=== PATIENT | male | born 1955 | race Caucasian/White ===

== ENCOUNTER 2019-05-21 14:33 | Inpatient (IN) | payer MEDICAID ==
[~2019-05-21] VITALS: Ht 167.6 cm; Wt 60.8 kg
[2019-05-21 14:48] VITALS: BP 101/68
--- NOTE | 2019-05-21 14:58 | NUR ---
PT ARRIVED TO ED WITH DAUGHTER FOR C/O RIGHT ABD PAIN, APPETTIE CHANGE, AND ALOC X 2 WEEKS. PT ABD IS DISTENDED, ASCITIC, ADN TENDERNESS ON RIGHT LOWER QUAD. BS ACTIVE IN ALL QUADS. DENIES ANY N,V,D,FVER, OR CONSTIPATION. VSS. LUNG SOUNDS CLEAR ON RIGHT SIDE AND DIMINSHED AND CRACKLES ON LEFT SIDE. RATES PAIN 10/10. FOLLOWS COMMANDS. Sclera SHOWS MILD YELLOW DISCOLORATION. SKIN SHOWS MILD JAUNDICE. SKIN IS INTACT. SKIN SHOWS BURSING ON UPPER EXTREM. RIGHT LEG SHOWS +3 PITTING EDEMA AND +2 PITTING EDEMA AT THE LEFT ANKLE. NKA. PMH: ASCITIES, LIVER Cirrhosis.
--- NOTE | 2019-05-21 14:58 | NUR ---
PT TAKEN TO ER BED 05
[2019-05-21 15:32] LABS: BASOPHILS # (AUTO) 0.1 K/uL (0.00-0.22); BASOPHILS % (AUTO) 0.7 % (0.0-2.0); EOSINOPHILS # (AUTO) 0.2 K/uL (0-0.4); EOSINOPHILS % (AUTO) 2.6 % (0.0-4.0); HEMOGLOBIN 9.4 g/dL (12.0-18.0); LYMPHOCYTES # (AUTO) 1.5 K/uL (2.0-11.5); LYMPHOCYTES % (AUTO) 17.7 % (20.5-51.1); MEAN CORPUSCULAR HEMOGLOBIN 38 pg (27-31); MEAN CORPUSCULAR HGB CONC 35 g/dL (33-37); MEAN CORPUSCULAR VOLUME 107.8 fL (80-94); MONOCYTES # (AUTO) 1.7 K/uL (0.8-1.0); NEUTROPHILS # (AUTO) 5.2 K/uL (1.8-7.7); PLATELET COUNT (AUTO) 157 K/uL (140-450); RED BLOOD CELL COUNT(AUTO) 2.51 MIL/uL (4.20-6.10); RED CELL DISTRIBUTION WIDTH 14.4 % (11.6-13.7); WHITE BLOOD COUNT (AUTO) 8.7 K/uL (4.8-10.8)
[2019-05-21 15:57] LABS: ANION GAP 15.2 (8-16); CARBON DIOXIDE 25.3 mmol/L (21-32); CREATININE 2.1 mg/dL (0.7-1.3); POTASSIUM 4.5 mmol/L (3.5-5.1); TOTAL BILIRUBIN 3.2 mg/dL (0.0-1.0)
--- NOTE | 2019-05-21 16:13 | NUR ---
DAUGHTER AT BEDSIDE.
[2019-05-21] MEDS ORDERED: MORPHINE SULFATE 4 MG/ML SYR IVP ONE (18:00)
[2019-05-21] MEDS ORDERED: HYDROcodone/APAP 7.5/325 MG 1 TAB PO PRN (18:10)
[2019-05-21] MEDS ORDERED: ACETAMINOPHEN 325 MG TAB PO PRN (18:10)
[2019-05-21] MEDS ORDERED: MORPHINE SULFATE 2 MG/ML SYR IVP PRN (18:10)
--- NOTE | 2019-05-21 18:25 | NUR ---
PT TRANSFER TO VIA WHEELCHAIR.
--- NOTE | 2019-05-21 18:25 | NUR ---
Cathryn rocha in ED - 05/21/19 at 1839 by [facility] PT TRANSFER TO CT VIA WHEELCHAIR.
--- NOTE | 2019-05-21 18:38 | NUR ---
PT RETURNED BACK FROM XR VIA WHEELCHAIR.
--- NOTE | 2019-05-21 19:00 | NUR ---
Patient will be admitted to care of DR. RODRIGUEZ. Admited to TELE. Will go to room 126B. Belongings list completed. Report to LANCE LAKHANI.
[2019-05-21] MEDS ORDERED: ALUMINUM HYD/MAG/SIMETHICONE 30 ML UDC PO PRN (19:10)
[2019-05-21 19:12] LABS: PROTHROMBIN TIME 16.7 secs (10.8-13.4)
[2019-05-21] MEDS ORDERED: FUROSEMIDE 20 MG/2 ML VIAL IVP SCH (19:20)
[2019-05-21] MEDS ORDERED: SPIRONOLACTONE 50 MG TAB PO SCH (19:20)
[2019-05-21] MEDS ORDERED: LACTULOSE 20 GM/30 ML UDC PO SCH (19:20)
[2019-05-21 19:27] LABS: FREE T4 (FREE THYROXINE) 0.65 ng/dL (0.76-1.46); MAGNESIUM 1.9 mg/dL (1.8-2.4); THYROID STIMULATING HORMONE 51.92 uIU/mL (0.34-3.74)
--- NOTE | 2019-05-21 19:30 | NUR ---
RECEIVED BEDSIDE REPORT FROM SALES PROGRAM MANAGER. PT IS SLEEPING. RESPONDS TO NAME. DAUGHTER YON AT BEDSIDE. RESPIRATIONS ARE EQUAL AND UNLABORED ON ROOM ARE. LUNG SOUNDS ARE CLEAR. C/C ABD PAIN AND DISTENTION X2 WEEKS. PITTING EDEMA ON ODALIS LEGS R>L. SKIN IS INTACT. PER DAUGHTER PT DOES NOT USE OXYGEN AT HOME AND ABLE TO AMBULATE. PT AMBULATED FROM GURNEY TO BED GAIT UNSTEADY. AAO X1 PERSON. IV ON LAC 20G. US ABDOMEN PENDING. MRSA OBTAINED. VS: 102/69 HR 98 97% RA RR 16. CALL LIGHT IS WITHIN REACH. POC DISCUSSED WITH PT AND FAMILY. WILL CONTINUE TO MONITOR.
[2019-05-21 20:00] VITALS: BP 102/69
--- NOTE | 2019-05-21 20:00 | NUR ---
US BEING PERFORM AT BEDSIDE. WILL CONTINUE TO MONITOR.
[2019-05-21] MEDS: NACL 0.9% 1,000 ML IV SCH (21:00)
--- NOTE | 2019-05-21 21:14 | NUR ---
VSS. SHILPI MEDICATIONS GIVEN PER ORDERS. PT TOLERATED WELL. BED ALARM ON AND LOWEST POSITION. CALL LIGHT IS WITHIN REACH.
--- NOTE | 2019-05-21 22:47 | NUR ---
PT IS SLEEPING COMFORTABLY IN BED. RESPIRATIONS ARE EQUAL AND UNLABORED. SAFETY MEASURES ARE IN PLACE.
[2019-05-22] VITALS: BP 111/74
--- NOTE | 2019-05-22 01:17 | NUR ---
VITAL SIGNS ARE WITHIN NORMAL LIMITS. CALL LIGHT IS WITHIN REACH. WILL CONTINUE TO MONITOR.
[2019-05-22 04:00] VITALS: BP 119/84
--- NOTE | 2019-05-22 04:00 | NUR ---
VITAL SIGNS ARE WITHIN NORMAL LIMITS. ALL SAFETY MEASURES ARE IN PLACE. CALL LIGHT IS WITHIN REACH.
[2019-05-22] MEDS: ONDANSETRON 4 MG/2 ML VIAL IM/IVP PRN (05:53)
[2019-05-22] MEDS: LEVOTHYROXINE 0.05 MG TAB PO SCH (06:23)
--- NOTE | 2019-05-22 06:37 | NUR ---
NO URINE OUTPUT. BLADDER SCAN >[address] CHILDS ORDER FOR STRAIGHT CATH. WILL F/U
--- NOTE | 2019-05-22 07:31 | NUR ---
GAVE BEDSIDE REPORT TO DAY RN. PT ENDORSED IN STABLE CONDITION.
--- NOTE | 2019-05-22 07:34 | NUR ---
RECEIVED REPORT FROM NIGHT NURSE. PATIENT IS LYING IN BED ASLEEP, ABLE TO WAKE. IV INTACT AND PATENT TO LEFT AC. IVF NS INFUSING AT 30ML/HR. NO S/S OF DISTRESS NOTED. BED IN LOW POSITION, SAFETY MEASURES IN PLACE. CALL LIGHT WITHIN REACH.
[2019-05-22 08:00] VITALS: BP_SYST 111; BP_SYST 92; BP_DIAS 66; BP_DIAS 79
--- NOTE | 2019-05-22 08:45 | NUR ---
STRAIGHT CATH PERFORMED, UNABLE TO COLLECT URINE. WILL ATTEMPT AGAIN. DR. BAILEY NOTIFIED.
[2019-05-22] MEDS ORDERED: MULTIVITAMIN 1 TAB PO SCH (09:00)
[2019-05-22] MEDS ORDERED: FUROSEMIDE 20 MG/2 ML VIAL IVP SCH (09:00)
[2019-05-22] MEDS ORDERED: SPIRONOLACTONE 50 MG TAB PO SCH (09:00)
[2019-05-22] MEDS ORDERED: FOLIC ACID 1 MG TAB PO SCH (09:00)
[2019-05-22] MEDS ORDERED: THIAMINE 100 MG TAB PO SCH (09:00)
[2019-05-22 10:54] LABS: HEMATOCRIT 29.7 % (36-52); MEAN CORPUSCULAR HEMOGLOBIN 36 pg (27-31); MEAN CORPUSCULAR HGB CONC 34 g/dL (33-37); MEAN CORPUSCULAR VOLUME 108.3 fL (80-94); PLATELET COUNT (AUTO) 163 K/uL (140-450); RED BLOOD CELL COUNT(AUTO) 2.75 MIL/uL (4.20-6.10); RED CELL DISTRIBUTION WIDTH 14.6 % (11.6-13.7)
--- NOTE | 2019-05-22 11:00 | NUR ---
SECOND ATTEMPT STRAIGHT CATH PERFORMED, NO URINE OUTPUT. WILL NOTIFY DR. BAILEY.
[2019-05-22 11:12] LABS: CREATININE 3.1 mg/dL (0.7-1.3)
[2019-05-22 11:25] LABS: POTASSIUM 4.7 mmol/L (3.5-5.1)
[2019-05-22 11:32] LABS: CARBON DIOXIDE 21.9 mmol/L (21-32)
[2019-05-22 11:33] LABS: ANION GAP 20.8 (8-16)
--- NOTE | 2019-05-22 11:35 | NUR ---
RECEIVED CRITICAL VALUE: LACTIC ACID 6.6 PER MARILU (LAB). PAGED DR. BAILEY.
[2019-05-22 11:38] LABS: BASOPHILS % (MANUAL) 0 % (0-2); EOSINOPHILS % (MANUAL) 0 % (0-4); LYMPHOCYTES % (MANUAL) 4 % (20-46); MONOCYTES % (MANUAL) 10 % (5-12)
--- NOTE | 2019-05-22 11:50 | NUR ---
DR. MCELROY NOTIFIED OF PATIENT'S LACTIC ACID 6.6 AND UNSUCCESSFUL URINARY STRAIGHT CATHETER. WILL ORDER AND SEE PATIENT.
[2019-05-22 12:00] VITALS: BP 90/59
--- NOTE | 2019-05-22 12:32 | NUR ---
PT REPORTS PAIN 8/10 TO ABDOMINAL AREA. MEDICATED ORDERED. DAUGHTER AND FAMILY AT BEDSIDE.
[2019-05-22 13:35] LABS: CHOL/HDL RATIO 7.4 (1-4.5)
--- NOTE | 2019-05-22 14:40 | NUR ---
NOTIFIED DR. BAILEY, IN REGARDS TO UNSUCCESSFUL INSERTION OF QIU CATHETER. RESISTANCE MET DURING INSERTION. DR. BAILEY TO REFER TO UROLOGY CONSULT.
--- NOTE | 2019-05-22 15:09 | NUR ---
QIU CATHETER RE INSERTION ATTEMPTED, WITH DR. BAILEY AT BEDSIDE. UNABLE TO INSERT CATHETER AT THIS TIME. WILL REFER TO UROLOGIST.
[2019-05-22] MEDS: TAMSULOSIN 0.4 MG CAP PO SCH (15:32)
[2019-05-22 16:00] VITALS: BP 92/54
[2019-05-22] MEDS ORDERED: MORPHINE SULFATE 2 MG/ML SYR IVP SCH (16:20)
[2019-05-22] MEDS ORDERED: LORazepam 2 MG/ML VIAL IVP SCH (16:20)
--- NOTE | 2019-05-22 16:20 | NUR ---
ULTRASOUND GUIDED PARACENTESIS PERFORMED BY DR. BAILEY. CONSENT AND TIME OUT FORM DONE. MORPHINE AND ATIVAN GIVEN ORDERED NOW. WILL MONITOR PATIENT.
--- NOTE | 2019-05-22 17:00 | NUR ---
STATUS POST PARACENTESIS. OUTPUT 1050 ML OF FLUID. PATIENT IS KEPT COMFORTABLE DURING PROCEDURE. WILL CONTINUE TO MONITOR PATIENT.
--- NOTE | 2019-05-22 18:27 | NUR ---
VS 94/52, RESPIRATION 20, TEMP 98.0, O2 SAT 96% RA. FAMILY AT BEDSIDE.
[2019-05-22] MEDS ORDERED: LACTULOSE 20 GM/30 ML UDC PO SCH (18:30)
[2019-05-22] MEDS ORDERED: ALBUMIN HUMAN 25% 100 ML IV SCH (19:00)
[2019-05-22] MEDS: NACL 0.9% 1,000 ML IV SCH (19:05)
--- NOTE | 2019-05-22 19:05 | NUR ---
REPORT GIVEN TO SUPERINTENDENT SYSTEM OPERATION NURSE. PATIENT IS IN STABLE CONDITION.
--- NOTE | 2019-05-22 19:06 | NUR ---
RECEIVED BEDSIDE REPORT. PT IS LAYING IN BED WITH EYES CLOSED RESPIRATIONS ARE EQUAL AND UNLABORED ON RA. DAY RN IS GOING TO START ALBUMIN PER ORDERS IV ON LAC 20G. ALSO DAY RN TRIED TO GIVE LACTULOSE BUT PT UNRESPONSIVE OPEN EYES BUT NOT TALKING HIGH RISK OF ASPIRATION. PT HAD A PARACENTESIS TODAY 1050L OUTPUT AT 1620 ORDER TO SEND FLUID TO LAB CURRENTLY IN ROOM. ORDER FOR QIU CATH D/T NO URINE OUTPUT IN OVER 24H. NURSES ATTEMPT X4 WILL F/U WITH DOCTOR. FAMILY IS AT BEDSIDE. POC DISCUSSED WITH PT AND FAMILY. SAFETY MEASURES ARE IN PLACE. WILL ROUND FREQUENTLY.
--- NOTE | 2019-05-22 19:40 | NUR ---
VSS: 99/54 HR 101 98%RA RR 18 97.6. NOTED ODALIS LOWER EXTREMITY PITTING EDEMA R>L NO CHANGE NOTED FROM YESTERDAY. BLADDER SCAN REVEALED 600CC BUT NOT ACCURATE D/T ASCITES. MADE AWARE WILL ORDER CONSULT WITH DR MILES FOR QIU INSERTION. ALSO MADE AWARE OF LACTIC ACID TRENDING UP 7.2 H. TO SEE PATIENT.
[2019-05-22 19:46] LABS: BASOPHILS % (AUTO) 0.3 % (0.0-2.0); HEMATOCRIT 28.2 % (36-52); HEMOGLOBIN 9.5 g/dL (12.0-18.0); LYMPHOCYTES # (AUTO) 0.8 K/uL (2.0-11.5); LYMPHOCYTES % (AUTO) 5.7 % (20.5-51.1); MEAN CORPUSCULAR HEMOGLOBIN 37 pg (27-31); MEAN CORPUSCULAR HGB CONC 34 g/dL (33-37); MEAN CORPUSCULAR VOLUME 109.5 fL (80-94); MONOCYTES # (AUTO) 0.9 K/uL (0.8-1.0); MONOCYTES % (AUTO) 6.5 % (1.7-9.3); NEUTROPHILS # (AUTO) 11.7 K/uL (1.8-7.7); NEUTROPHILS % (AUTO) 87.5 % (42.2-75.2); PLATELET COUNT (AUTO) 153 K/uL (140-450); RED BLOOD CELL COUNT(AUTO) 2.57 MIL/uL (4.20-6.10); RED CELL DISTRIBUTION WIDTH 14.5 % (11.6-13.7); WHITE BLOOD COUNT (AUTO) 13.3 K/uL (4.8-10.8)
[2019-05-22 20:00] VITALS: BP 99/54
[2019-05-22 20:04] LABS: CREATININE 3.5 mg/dL (0.7-1.3)
[2019-05-22 20:10] LABS: ANION GAP 20.6 (8-16); CARBON DIOXIDE 20.8 mmol/L (21-32)
[2019-05-22 20:11] LABS: POTASSIUM 5.4 mmol/L (3.5-5.1)
[2019-05-22] MEDS ORDERED: PIPERACILLIN/TAZOBACTAM 3.375 GM in DEXTROSE 5% 50 ML IV SCH (21:00)
[2019-05-22] MEDS ORDERED: CALCIUM CHLORIDE 10% 1,000 MG in NACL 0.9% 100 ML IV SCH (21:00)
[2019-05-22] MEDS ORDERED: DEXTROSE 50% 50 ML SYR IVP SCH (21:00)
[2019-05-22] MEDS ORDERED: INSULIN REGULAR, HUMAN 100 UNIT/ML VIAL IVP SCH (21:00)
[2019-05-22] MEDS ORDERED: PIPERACILLIN/TAZOBACTAM 2.25 GM VIAL IV ONE (21:05)
[2019-05-22] MEDS: PIPERACILLIN/TAZOBACTAM 2.25 GM in DEXTROSE 5% 50 ML IV SCH (21:15)
--- NOTE | 2019-05-22 21:15 | NUR ---
PATIENT POTASSIUM HIGH ORDERS TO ADMINISTER INSULIN. ADMINISTERED DEXTROSE PER ORDERS IVP WILL F/U WITH ACCU CHECK BEFORE ADMINISTERING INSULIN.
[2019-05-22] MEDS ORDERED: CALCIUM CHLORIDE 10% 100 MG/ML SYR IVP ONE (21:24)
--- NOTE | 2019-05-22 21:45 | NUR ---
DR MILES ATTEMPT TO INSERT QIU CATH THERE WAS RESISTANCE. HE THEN FOLLOWED TO USE UROLOGIST GLORIA AND INSERT CATHETER THERE WAS 200 CC URINE OUTPUT DARK ORANGE/ BLOOD TINGE. PT TOLERATED WELL. SAFETY MEASURES ARE IN PLACE. WILL CONTINUE TO MONITOR. Addendum: 05/23/19 at 0107 by Cherry Rich RN THERE WAS 120 CC URINE OUTPUT
[2019-05-22 22:00] LABS: APPEARANCE,SPUN,BODY FLUID CLEAR (CLEAR); APPEARANCE,UNSPUN,BODY FLUID CLEAR (CLEAR); COLOR,BODY FLUID LT YELLOW (LT YELLOW); RBC, BODY FLUID 396 /cu. mm.; SPECIMENTYPE,BODY FLUID PARACENTESIS; TOTAL VOLUME,BODY FLUID 1050 mL; WBC, BODY FLUID 54 /cu. mm.
[2019-05-22 22:11] LABS: GLUCOSE,BODY FLUID 71 mg/dL
--- NOTE | 2019-05-22 22:14 | NUR ---
ADMINISTERED CA CHLORIDE NOW INFUSING PER ORDERS. ADMINISTERED INSULIN. BLOOD SUGAR IS 165. SAFETY MEASURES ARE IN PLACE. WILL CONTINUE TO MONITOR. Addendum: 05/22/19 at 2244 by Cherry Rich RN BG 163
[2019-05-22 22:21] LABS: POLYNUCLEAR, BODY FLUID 33 %
[2019-05-23] VITALS (13 sets, daily range): BP systolic 81–118; BP diastolic 47–94
--- NOTE | 2019-05-23 | NUR ---
VSS : 118/94, HR 105 RR 20 97% RA. RECHECKED BG 138. PT REMAINS ALOC. OPENS EYES TO VOICE BUT NONVERBAL. WILL CONTINUE TO MONITOR.
[2019-05-23 01:10] LABS: BARBITURATE, URINE NEG. ng/ml (NEG <=200); BENZODIAZEPINE, URINE NEG. ng/mL (NEG <=200); CANNABINOID, URINE NEG. ng/mL (NEG <=50); COCAINE, URINE NEG. ng/mL (NEG <=300); OPIATE, URINE NEG. ng/mL (NEG <=2000); PHENCYCLIDINE SCREEN,URINE NEG. ng/mL (NEG <=25)
--- NOTE | 2019-05-23 02:00 | NUR ---
PATIENT IS SLEEPING COMFORTABLY IN BED. CHEST RISE AND FALL. CALL LIGHT IS WITHIN REACH.
[2019-05-23 03:57] LABS: APPEARANCE,URINE CLEAR (CLEAR); BILIRUBIN,URINE 1+ (NEGATIVE); BLOOD, URINE 2+ (NEGATIVE); LEUKOCYTE ESTERASE ,URINE NEGATIVE (NEGATIVE); NITRITE, URINE NEGATIVE (NEGATIVE); UGLUCOSE NEGATIVE (NEGATIVE)
[2019-05-23] MEDS ORDERED: PIPERACILLIN/TAZOBACTAM 2.25 GM VIAL IV ONE (04:01)
[2019-05-23] MEDS: PIPERACILLIN/TAZOBACTAM 2.25 GM in DEXTROSE 5% 50 ML IV SCH ×2 (04:06→13:20)
[2019-05-23 04:07] LABS: COLOR,URINE AMBER (YELLOW)
[2019-05-23 04:10] LABS: WBC,URINE 0-5 /HPF (0-5)
[2019-05-23 04:11] LABS: HYALINE CASTS, URINE 0-10 /LPF (None Seen)
--- NOTE | 2019-05-23 04:23 | NUR ---
VITAL SIGNS ARE STABLE; 101/56 HR 102 92% RA RR 20 TEMP 97 .6. WALKED INTO ROOM PT HAD BLANK STARE WAS STARING AT CEILING. CALLED OUT PT'S NAME NO REACTION. SHOOK PT SHOULDER AND OPEN EYES WIDER. NO VERBAL RESPONSE OR LOOKED AT ME. CONTINUES TO STARE AT CEILING. MADE AWARE. PER DOCTOR WILL TREND LABS IN THE AM. WILL CONTINUE TO MONITOR CLOSELY.
[2019-05-23] MEDS: LEVOTHYROXINE 0.05 MG TAB PO SCH (06:30)
[2019-05-23] MEDS: MIDODRINE 5 MG TAB PO SCH ×3 (06:47→18:48)
--- NOTE | 2019-05-23 06:47 | NUR ---
D/T ALOC AND LETHARGIC HELD SHILPI PO MEDICATIONS. WILL INFORM DOCTOR. SAFETY MEASURES ARE IN PLACE. WILL CONTINUE TO MONITOR.
--- NOTE | 2019-05-23 07:29 | NUR ---
GAVE BEDSIDE REPORT TO DAY RN. PT ENDORSED IN STABLE CONDITION.
--- NOTE | 2019-05-23 07:42 | NUR ---
RECEIVED BEDSIDE REPORT. PT IS LAYING IN BED WITH EYES CLOSED RESPIRATIONS LOUD PT MAKING SNORING NOISES. O2 AT 95% ON RA. PT UNRESPONSIVE TO NAME AND ONLY MAKES EYE MOVEMENTS TO PAIN. PT HAD A PARACENTESIS YESTERDAY WITH 1050L OUTPUT. QIU INSERTED BY UROLOGIST LAST NIGHT. PT ONLY HAS HAD 120 OUTPUT SO FAR. MADE AWARE OF CHANGES IN LOC PER PAINT LINE OPERATOR. PT IV IN THE L FA 20G INFUSING 50ML/HR. PT ON A CCHO 60GM DIET BUT PT UNABLE TO EAT DUE TO ASPIRATION POSSIBLE. WILL CONTINUE TO ROUND ON PT. BED IN LOW POSITION, CALL LIGHT WITHIN REACH.
[2019-05-23 07:45] LABS: ANION GAP 17.1 (8-16); CARBON DIOXIDE 23.7 mmol/L (21-32); CREATININE 3.8 mg/dL (0.7-1.3); POTASSIUM 4.8 mmol/L (3.5-5.1)
[2019-05-23 07:46] LABS: HEMATOCRIT 20.8 % (36-52); HEMOGLOBIN 7.3 g/dL (12.0-18.0); MEAN CORPUSCULAR HEMOGLOBIN 38 pg (27-31); MEAN CORPUSCULAR HGB CONC 35 g/dL (33-37); MEAN CORPUSCULAR VOLUME 107.7 fL (80-94); PLATELET COUNT (AUTO) 129 K/uL (140-450); RED BLOOD CELL COUNT(AUTO) 1.93 MIL/uL (4.20-6.10); RED CELL DISTRIBUTION WIDTH 14.7 % (11.6-13.7); WHITE BLOOD COUNT (AUTO) 10.1 K/uL (4.8-10.8)
[2019-05-23 07:53] LABS: PHOSPHORUS 4.9 mg/dL (2.5-4.9)
[2019-05-23 08:13] LABS: LYMPHOCYTES % (MANUAL) 12 % (20-46); MONOCYTES % (MANUAL) 3 % (5-12)
[2019-05-23] MEDS ORDERED: TAMSULOSIN 0.4 MG CAP PO SCH (08:30)
--- NOTE | 2019-05-23 08:32 | NUR ---
PATIENT HAS BEEN SCREENED AND CATEGORIZED HIGH NUTRITION RISK. PATIENT WILL BE SEEN WITHIN 1-2 DAYS OF ADMISSION. 05/23/[address]
[2019-05-23] MEDS ORDERED: LACTULOSE 20 GM/30 ML UDC PR SCH ×2 (09:00→17:00)
[2019-05-23] MEDS ORDERED: LACTULOSE 20 GM/30 ML UDC PO SCH (09:00)
--- NOTE | 2019-05-23 09:15 | NUR ---
PT TAKEN TO ICU FOR CLOSER OBSERVATION. PT TO BE TRANSFERRED TO OTHER FACILITY FOR HIGHER LEVEL OF CARE. PT FAMILY STATED THAT PT BREATHING WAS BETTER YESTERDAY. NOTIFIED OF CHANGES. DR. LUNDBERG SO=POKE WITH FAMILY OF PT CONDITION. ENDORSED TO ICU NURSE BOGDAN FOR CONTINUITY OF CARE. PT VITALS STABLE UPON TRANSFER TO ICU AND HR/O2 SAT STABLE ON ROUTE TO ICU.
--- NOTE | 2019-05-23 09:15 | NUR ---
TRANSFERRED PT FROM FLOOR TO ICU BY KAYLA. PT IS UNRESPONSIVE TO NAME STIMULI. DOES NOT OPEN EYES. BEDSIDE MONITOR SHOWS [id number]. LUNG SOUND WHEEZING. O2 SATS SHOWS 82%, GAVE OXY 6L/MIN INCREASED TO 92-97%. ABD SOFT. PER FLOOR NURSE, PT HAD PARACENTESIS OUTPUT 1050 YESTERDAY. PT HAS IV TO LEFT AC # 20. F/C IN PLACE, NO URINE NOTED IN URINE BAG. PT RLE HAS EDEMA NOTED. AFTER TRANSFERRED PT TO ROOM, PT HAD SMALL AMOUNT OF VOMITING( COFFEE GROUND), SUCTIONED PT.HOB ELEVATED 30 DEGREES WITH LOW BED POSITION, WILL CONTINUE TO MONITOR PT. Addendum: 05/23/19 at 1035 by Td Curran RN PT BP 87/55 WHEN PT GOT TO ICU.
[2019-05-23] MEDS ORDERED: ALBUTEROL SULFATE/IPRATROPIU 3 ML SOL IH PRN (09:20)
--- NOTE | 2019-05-23 09:40 | NUR ---
INSERTED RECTAL TUBE.
--- NOTE | 2019-05-23 10:24 | NUR ---
IN TO CHECK PT. UPDATED PT'S CONDITION. NOTIFIED PT DOES NOT HAVE URINE DAYSHIFT. TRUCK DRIVER'S OFFSIDER URINE OUTPUT [address] DUDLEY TALKING TO PT'S FAMILY AT BEDSIDE.
[2019-05-23] MEDS ORDERED: ALBUMIN HUMAN 25% 100 ML IV SCH (11:00)
--- NOTE | 2019-05-23 11:55 | NUR ---
DC PLANNING 63 YRS OLD MALE PT WAS ADMITTED FROM HOME WITH A DX OF ABDOMINAL PAIN AND CIRRHOSIS, AND LETHARGIC. ULTRA SOUND OF ABDOMEN LARGE TO MODERATE SIZE ASCITES , PARACENTESIS DONE . IV ZOSYN IVPB GIVEN . D/C PLAN TO TRANSFER TO HIGHER LEVEL OF CARE FOR HEPATORENAL SYNDROME FOR LIVER SPECIALIST. FAXED TO [facility]. Addendum: 05/24/19 at 1655 by Ana Templeton CM DC PLANNING 05/23/12 1300 RECEIVED A CALL FROM CLARISSA SPOKE WITH JARED , STATED NO LIVER SPECIALIST ACCEPTED THE PT AT THIS TIME AND ASKING WHETHER NEEDS LIVER TRANSPLANT.
--- NOTE | 2019-05-23 12:05 | NUR ---
NOTIFIED DR. SOLIS PT BP 86/52, MAP SHOWS [address] SOLIS, CALL HIM ONCE PT MAP LESS THAN 60.
[2019-05-23 12:32] LABS: HEPATITIS A ANTIBODY IGM Negative (Negative); HEPATITIS B CORE AB TOTAL Negative (Negative); HEPATITIS B SURFACE ANTIBODY Non Reactive (.); HEPATITIS B SURFACE ANTIGEN Negative (Negative)
--- NOTE | 2019-05-23 13:10 | NUR ---
DR. SO AT BEDSIDE TO INSERT NG TUBE.
[2019-05-23] MEDS: ALBUTEROL SULFATE/IPRATROPIU 3 ML SOL IH SCH (13:23)
[2019-05-23] MEDS ORDERED: OCTREOTIDE ACETATE 1.25 MG in NACL 0.9% 250 ML IV SCH (13:25)
[2019-05-23] MEDS ORDERED: LEVOTHYROXINE 0.1 MG TAB NG SCH (13:35)
--- NOTE | 2019-05-23 13:39 | NUR ---
Retoucher Assessment/Discharge Plan High Risk DC Screen Yes Name: Stephanie Paiz Home Relationship: daughter Pre-Admission Living Arrangements: Lives with Other Other: daughter: Cecy Apodaca Prior ADL Independent Current Home Health Name/Tel: N/A Current DME/02 Name/Tel: N/A Current Hospice Name/Tel: N/A Current Dialysis Name/Tel: N/A Healthcare Decision Maker: Patient Advance Directive No Tentative Discharge Plan Summary: Patient is a 63 year old male with history of cirrhosis. I met with patient's family (patient's daughters Ayde Apodaca and Stephanie Paiz; patient's Rita Apodaca). Due to patient's condition, he is not able to participate during assessment. Patient lives at home with his daughter Cecy. Patient's family reported they were informed by MD patient has poor prognosis. Patient's pcp is Shannen Gregory ([place]). Prior to hospital admission patient was independent with ADLs and did not use any DME. Patient's family stated patient does not have an Advance Directive. They are aware of MD's order for higher of level care transfer. I provided them with my contact information. Retoucher and/or Gas Appliance Servicer will follow up as needed. Signature: FALLON Quinonez Date: May 23, 2019
--- NOTE | 2019-05-23 14:25 | NUR ---
05/23/19 RD INITIAL ASSESSMENT COMPLETED PLEASE REFER TO NUTRITION ASSESSMENT UNDER CARE ACTIVITY FOR ESTIMATED NUTRITIONAL NEEDS. 1. RECOMMEND NEPRO @45 ML/HR -THIS WILL PROVIDE 1080 ML OF VOLUME, 1944 KCAL AND 87.5 GM OF PROTEIN WHICH MEETS 100% OF ESTIMATED NEEDS 2. RECOMMEND FREE WATER FLUSH 55 ML Q6H 3. IF/WHEN PATIENT BECOMES ALERT AND CONSCIOUS, RECOMMEND A SWALLOW EVALUATION TO ADVANCE TO A PO DIET 4. RD TO FOLLOW-UP 2-3 DAYS, HIGH RISK YONNY MEDINA RD
[2019-05-23] MEDS ORDERED: SYNTHROID 100 MCG SCH (14:30)
--- NOTE | 2019-05-23 14:30 | NUR ---
ABOUT 200 CC BROWNISH SECRETION CAME OUT AFTER DR. SO INSERTED NG TUBE. MADE AWARE.
[2019-05-23] MEDS: LACTULOSE 20 GM/30 ML UDC NG SCH ×2 (16:17→21:09)
--- NOTE | 2019-05-23 17:00 | NUR ---
START TUBE FEEDING AT 10 CC/HR. PLACEMENT CHECKED.
--- NOTE | 2019-05-23 17:10 | NUR ---
STARED RBC TRANSFUSION. NO FEVER. FAMILY AT BEDSIDE.
--- NOTE | 2019-05-23 18:16 | NUR ---
PT STILL UNRESPONSIVE TO NAME OR LIGHT PAIN STIMULI. ON O2 NC 2L/MIN, O2 SATS 95-98%. BEDSIDE MONITOR STILL SHOWS ST 103S. FAMILY AT BEDSIDE.
[2019-05-23] MEDS: METOCLOPRAMIDE 10 MG/2 ML INJ VIAL IVP SCH ×2 (18:48→23:40)
[2019-05-23] MEDS: NACL 0.9% 1,000 ML IV SCH (18:48)
--- NOTE | 2019-05-23 19:08 | NUR ---
ENDORSED PT TO PM SHIFT RN.
--- NOTE | 2019-05-23 19:10 | NUR ---
RECEIVED REPORT FROM DAYSHIFT NURSE AT PATIENTS BEDSIDE, NO DISTRESS NOTED, WILL FOLLOWUP CARE
--- NOTE | 2019-05-23 19:55 | NUR ---
BLOOD TRANSFUSION COMPLETE, LINE FLUSHED WITH NORMAL SALINE, IV SITE FLUSHED AND SALINE LOCKED, BLOOD BAG AND LINES DISCARDED VIA BIOHAZARD WASTE. NO SIGNS OF REACTION.
--- NOTE | 2019-05-23 20:00 | NUR ---
RECEIVED PATIENT IN BED, DOES NOT RESPOND TO VOICE OR STERNAL RUB, ANOx0. LETHARGIC, EYES ARE REACTIVE, SLUGGISH 3MM, PERRL. SKIN WARM AND DRY, AFEBRILE. NASAL CANNULA IN PLACE TO 2LPM, SATURATION GREATER THAN 95%, RESPIRATIONS ARE EVEN AND UNLABORED, RR 20. LUNG SOUNDS ARE DIMINISHED. S1,S2 SINUS TACHYCARDIA ON MONITOR, HEART RATE 105 BPM, BLOOD PRESSURE 94/62. BLOOD TRANSFUSION CURRENTLY IN PLACE, LEFT AC PERIPHERAL IV, 20 G, FLUSHED AND PATENT, INFUSING BLOOD, LEFT FOREARM PERIPHERAL IV 22G, FLUSHED WITHOUT SYMPTOMS, INFUSING 0.45 NS @ 50ML/HR. ABDOMEN IS FIRM AND DISTENDED, BOWEL SOUNDS ARE ACTIVE, RECTAL TUBE IN PLACE. QIU CATHETER IN PLACE. LOWER EXTREMITIES ARE EDEMATOUS +1 PITTING. BED IS LOCKED AND IN LOW POSITION, SIDERAILS UP, CALL LIGHT WITHIN REACH. WILL CONTINUE TO MONITOR Addendum: 05/23/19 at 2232 by Ashley Miranda RN INFUSING SANDOSTATIN @ 10ML/HR
[2019-05-23] MEDS: PANTOPRAZOLE 40 MG INJ VIAL IVP SCH (21:08)
--- NOTE | 2019-05-23 21:15 | NUR ---
AIR CHECK/ AUSCULTATION COMPLETE FOR NGT PLACEMENT, SCHEDULED MEDICATIONS ADMINISTERED, NO RESIDUALS AT THIS TIME, PATIENT TOLERATING FEEDING, TUBE FEEDING INCREASED TO 40ML/HR.
[2019-05-23 22:06] LABS: BASOPHILS % (AUTO) 0.4 % (0.0-2.0); EOSINOPHILS # (AUTO) 0.1 K/uL (0-0.4); EOSINOPHILS % (AUTO) 0.8 % (0.0-4.0); HEMATOCRIT 28.3 % (36-52); HEMOGLOBIN 9.7 g/dL (12.0-18.0); LYMPHOCYTES # (AUTO) 1.3 K/uL (2.0-11.5); LYMPHOCYTES % (AUTO) 15.2 % (20.5-51.1); MEAN CORPUSCULAR HEMOGLOBIN 35 pg (27-31); MEAN CORPUSCULAR HGB CONC 34 g/dL (33-37); MEAN CORPUSCULAR VOLUME 102.2 fL (80-94); MONOCYTES # (AUTO) 1.4 K/uL (0.8-1.0); MONOCYTES % (AUTO) 16.2 % (1.7-9.3); NEUTROPHILS # (AUTO) 5.8 K/uL (1.8-7.7); NEUTROPHILS % (AUTO) 67.4 % (42.2-75.2); PLATELET COUNT (AUTO) 126 K/uL (140-450); RED BLOOD CELL COUNT(AUTO) 2.77 MIL/uL (4.20-6.10); WHITE BLOOD COUNT (AUTO) 8.6 K/uL (4.8-10.8)
--- NOTE | 2019-05-23 22:26 | NUR ---
PATIENT TURNED AND REPOSITIONED, DOES NOT RESPOND TO LIGHT PAIN, TOLERATED WELL
--- NOTE | 2019-05-23 23:54 | NUR ---
ORAL CARE PROVIDED, PATIENT IS MOANING/GROANING AND SHUTTING MOUTH-WITHDRAWING TO LIGHT PAIN. PATIENT CANNOT OPEN EYES OR FOLLOW SIMPLE COMMANDS.
[2019-05-24] VITALS (12 sets, daily range): BP systolic 99–216; BP diastolic 62–84
--- NOTE | 2019-05-24 | NUR ---
QIU CATHETER IN PLACE, MINIMAL OUTPUT, MD AWARE. SMALL AMOUNT OF URINE IN QIU BAG, CLEAR DARK MARKOS URINE NOTED
[2019-05-24 01:09] LABS: HEMATOCRIT 27.6 % (36-52); HEMOGLOBIN 9.6 g/dL (12.0-18.0); MEAN CORPUSCULAR HEMOGLOBIN 35 pg (27-31); MEAN CORPUSCULAR HGB CONC 35 g/dL (33-37); PLATELET COUNT (AUTO) 122 K/uL (140-450); RED BLOOD CELL COUNT(AUTO) 2.73 MIL/uL (4.20-6.10); RED CELL DISTRIBUTION WIDTH 19.7 % (11.6-13.7); WHITE BLOOD COUNT (AUTO) 8.7 K/uL (4.8-10.8)
[2019-05-24 01:25] LABS: LYMPHOCYTES % (MANUAL) 12 % (20-46); MONOCYTES % (MANUAL) 15 % (5-12)
[2019-05-24] MEDS: NACL 0.9% 1,000 ML IV SCH (01:28)
--- NOTE | 2019-05-24 02:15 | NUR ---
EYES CLOSED, DOES NOT FOLLOW SIMPLE COMMANDS, DOES NOT RESPOND TO VOICE ONLY WITHDRAWS TO LIGHT PAIN. TURNED AND REPOSITIONED, SCD'S IN PLACE. WILL CONTINUE TO MONITOR
--- NOTE | 2019-05-24 04:00 | NUR ---
PATIENT TURNED AND REPOSITIONED, PATIENT STILL NOT RESPONDING TO NAME OR STERNAL RUB, PATIENT WILL FORCE MOUTH CLOSE WHEN PROVIDING ORAL CARE
[2019-05-24 05:44] LABS: ANION GAP 16.2 (8-16); CARBON DIOXIDE 24.4 mmol/L (21-32); POTASSIUM 4.6 mmol/L (3.5-5.1)
[2019-05-24 05:50] LABS: PHOSPHORUS 3.5 mg/dL (2.5-4.9)
--- NOTE | 2019-05-24 05:56 | NUR ---
CRITICAL LAB: CREATININE: 4.7, TRENDING UP. RESIDENT DOCTOR MADE AWARE
[2019-05-24 05:58] LABS: CREATININE 4.7 mg/dL (0.7-1.3)
--- NOTE | 2019-05-24 06:30 | NUR ---
RESIDENT DOCTOR IN TO ASSESS PATIENT, RT AT BEDSIDE FOR BREATHING TREATMENT
[2019-05-24] MEDS: METOCLOPRAMIDE 10 MG/2 ML INJ VIAL IVP SCH ×2 (06:34→11:35)
[2019-05-24] MEDS: MIDODRINE 5 MG TAB PO SCH ×2 (06:34→13:27)
[2019-05-24 06:39] LABS: HEMATOCRIT 27.7 % (36-52); HEMOGLOBIN 9.6 g/dL (12.0-18.0); MEAN CORPUSCULAR HEMOGLOBIN 35 pg (27-31); MEAN CORPUSCULAR HGB CONC 35 g/dL (33-37); MEAN CORPUSCULAR VOLUME 102.4 fL (80-94); PLATELET COUNT (AUTO) 118 K/uL (140-450); RED BLOOD CELL COUNT(AUTO) 2.71 MIL/uL (4.20-6.10); RED CELL DISTRIBUTION WIDTH 19.3 % (11.6-13.7)
--- NOTE | 2019-05-24 07:15 | NUR ---
RECEIVED BEDSIDE REPORT FROM SHIPYARD HELPER RNJAMEL. PT IN BED, RESPIRATIONS EVEN AND UNLABORED ON 2L NC. ST ON MONITOR. LUNG SOUNDS CLEAR, DIMINISHED. PT MAKING GROANING SOUND. ABD SOUNDS ACTIVE, RECTAL TUBE IN PLACE. PT IS OX0, NOT OPENING EYES. NOT RESPONDING TO LIGHT PAIN OR STERNAL RUB. QIU CATH IN PLACE, DRAINING YELLOW URINE, OUTPUT IS 100ML LAST NIGHT ACCORDING TO SHIPYARD HELPER RN. IV CATH NOTED TO LEFT AC 18G, FLUSHED, PATENT AND ASYMPTOMATIC, SL. IV CATH TO LEFT FA 22G, INFUSING NS AT 50ML/HR AND OCTREOTIDE 10ML/HR, ASYMPTOMATIC. SAFETY MEASURES ARE IN PLACE. WILL CONTINUE TO MONITOR.
[2019-05-24 07:41] LABS: LYMPHOCYTES % (MANUAL) 17 % (20-46); MONOCYTES % (MANUAL) 10 % (5-12)
--- NOTE | 2019-05-24 08:00 | NUR ---
G TUBE RESIDUAL 450ML, MADE DR MUÑIZ AWARE. ASKED DR MUÑIZ IF WE SHOULD PUT ALL OF IT BACK, DR MUÑIZ AGREED.
[2019-05-24] MEDS: LACTULOSE 20 GM/30 ML UDC NG SCH ×2 (08:17→13:27)
[2019-05-24] MEDS: PANTOPRAZOLE 40 MG INJ VIAL IVP SCH (08:18)
[2019-05-24 08:34] LABS: FERRITIN 1412 ng/mL (30 - 400)
[2019-05-24] MEDS ORDERED: LACTOBACILLUS RHAMNOSUS GG 1 EACH CAP PO SCH (09:00)
[2019-05-24] MEDS ORDERED: SYNTHROID 100 MCG SCH (09:00)
[2019-05-24] MEDS ORDERED: PROBIOTIC SCREEN 1 EA MISC MC PRN (09:15)
--- NOTE | 2019-05-24 09:40 | NUR ---
ROUGE PRESSER HAS LOTS OF ARTIFACTS AND ONE V FIB ALARM. MADE DR MUÑIZ AWARE, 12 LEAD IS ORDERED.
--- NOTE | 2019-05-24 09:45 | NUR ---
PT VOMITED GREEN STOMACH CONTENT, TURNED PT ON RIGHT SIDE, SUCTIONED MOUTH. ORAL CARE DONE.
--- NOTE | 2019-05-24 10:20 | NUR ---
CALLED RESIDENTS. DR MUÑIZ IN SX. DR DUNCAN COVERING. MADE DR DUNCAN AWARE THAT PT VOMITED TODAY BEFORE THE [address]. [address] DUNCAN IF HE CAN SEND THE EKG TO DR MARIEE, DR DUNCAN CAME AND CHECKED EKG. DR ARMINDA VELOZ AND BMP. ASKED DR DUNCAN IF ANOTHER PARACENTESIS CAN BE DONE BECAUSE PT ABD IS DISTENDED. DR DUNCAN SAID WILL LET DR MUÑIZ KNOW. Addendum: 05/24/19 at 1752 by Rene Donovan RN ALSO ASKED DR RAMSEY IF HE CAN PRESCRIBE SOME PAIN MED FOR GRUNTING/GROANING BECAUSE THE ONLY MEDICATION FOR PAIN ON EMAR IS TYLENOL WHICH IS TOXIC TO LIVER. DR RAMSEY SAID HE HAS TO ASK DR MUÑIZ.
--- NOTE | 2019-05-24 10:34 | NUR ---
DISCHARGE PLANNING: DISCUSSED PLAN TO TRANSFER TO HIGHER LEVEL OF CARE TO PATIENT'S DAUGHTER YON GARCIA AT THE BEDSIDE, ABLE TO VERBALIZE UNDERSTANDING. REFERRAL FAXED TO [facility] AT [phone]. TO FOLLOW UP. Addendum: 05/24/19 at 1119 by Drea Sosa CONTACTED [facility] TRANSF[facility] AT [phone] TO FOLLOW UP REFERRAL SENT, NO ANSWER. DETAILED MESSAGE WITH CONTACT INFO LEFT.
--- NOTE | 2019-05-24 11:00 | NUR ---
O2 SAT 88%, TURNED O2 NC FROM 2L TO 4L. O2 SAT WENT UP TO 91%.
--- NOTE | 2019-05-24 11:20 | NUR ---
DR SMITH CAME AND EVALUATED PT.
--- NOTE | 2019-05-24 11:30 | NUR ---
DR SO CALLED AND ASKING HOW IS PT DOING. REPORTED LABS REGARDING H&H, BUN, CREAT. PT IS ALOC, BARELY RESPOND TO PAIN STIMULUS. NOT OPENING EYES. ASKED DR SO IF HE STILL GONNA DO THE EGD, DR SO SAID MAYBE TOMORROW. MADE SARAY AWARE PT VOMITED TODAY, AND NG TUBE RESIDUAL WAS 450ML. ASKED IF PT NEEDS LOW INTERMITTENT SUCTION. DR SO SAID NO. JUST HOLD FEEDING.
[2019-05-24] MEDS ORDERED: VANCOMYCIN PER PHARMACY MC PRN (11:40)
--- NOTE | 2019-05-24 11:45 | NUR ---
PT O2 SAT 87%, RT PLACED PT ON VENTURI MASK FIO2 50%. O2 SAT WENT UP TO 95%
[2019-05-24 12:04] LABS: ANION GAP 17.9 (8-16); CARBON DIOXIDE 24.4 mmol/L (21-32); POTASSIUM 4.3 mmol/L (3.5-5.1)
--- NOTE | 2019-05-24 12:15 | NUR ---
pt left for CT,accompanied with RN , rufina cohn, and technical services specialist.
--- NOTE | 2019-05-24 12:25 | NUR ---
PT SAFELY RETURNED TO ICU BED 3. ALL BED LINENS CHANGED.
[2019-05-24 12:27] LABS: HEMATOCRIT 29.1 % (36-52); MEAN CORPUSCULAR HEMOGLOBIN 35 pg (27-31); MEAN CORPUSCULAR HGB CONC 34 g/dL (33-37); MEAN CORPUSCULAR VOLUME 101.9 fL (80-94); PLATELET COUNT (AUTO) 126 K/uL (140-450); RED BLOOD CELL COUNT(AUTO) 2.86 MIL/uL (4.20-6.10); RED CELL DISTRIBUTION WIDTH 19.8 % (11.6-13.7); WHITE BLOOD COUNT (AUTO) 9.5 K/uL (4.8-10.8)
[2019-05-24] MEDS: ALBUTEROL SULFATE/IPRATROPIU 3 ML SOL IH SCH (13:00)
[2019-05-24] MEDS ORDERED: VANCOMYCIN 1,000 MG in DEXTROSE 5% 250 ML IV SCH (13:00)
[2019-05-24 13:01] LABS: EOSINOPHILS % (MANUAL) 3 % (0-4); LYMPHOCYTES % (MANUAL) 18 % (20-46); MONOCYTES % (MANUAL) 10 % (5-12)
[2019-05-24 13:02] LABS: CREATININE 4.9 mg/dL (0.7-1.3)
--- NOTE | 2019-05-24 13:02 | NUR ---
CALLED DR DUNCAN, REPORTED VITALS HR 121, BP 118/71, O2 SAT 91% ON VENTURI MASK FIO2 50%. RR 26. DR DUNCAN SAID WILL TALK TO FAMILY REGARDING INTUBATION.
[2019-05-24 13:20] LABS: PROTHROMBIN TIME 20.3 secs (10.8-13.4)
[2019-05-24] MEDS: ONDANSETRON 4 MG/2 ML VIAL IM/IVP PRN (13:27)
--- NOTE | 2019-05-24 13:40 | NUR ---
DR MUÑIZ DISCUSSED CODE STATUS WITH PT'S DAUGHTER AND FAMILY. FAMILY DECIDED WITH DNR AND COMFORT MEASURES ONLY.
[2019-05-24] MEDS ORDERED: MORPHINE SULFATE 100 MG in NACL 0.9% 90 ML IV PRN ×2 (13:45→15:00)
--- NOTE | 2019-05-24 13:46 | NUR ---
PT IS GROANING/MOANING, 2MG MORPHINE IVP GIVEN PER DR MUÑIZ ORDER, FOR COMFORT MEASURE.
[2019-05-24] MEDS ORDERED: MORPHINE SULFATE 2 MG/ML SYR ONE (13:48)
[2019-05-24] MEDS ORDERED: SCOPOLAMINE 1.5 MG/72 HR PATCH TD SCH (13:55)
[2019-05-24] MEDS ORDERED: ONDANSETRON 4 MG/2 ML VIAL IVP PRN (13:55)
[2019-05-24] MEDS ORDERED: MORPHINE SULFATE 4 MG/ML SYR IVP SCH (14:15)
--- NOTE | 2019-05-24 14:15 | NUR ---
4MG MORPHINE IVP GIVEN PER DR MUÑIZ'S ORDER FOR COMFORT CARE. FAMILY AT BEDSIDE. PT OPENED HIS EYES BUT NOT FOLLOWING COMMANDS, FAMILY ARE TALKING TO PT.
--- NOTE | 2019-05-24 14:35 | NUR ---
MORPHINE DRIP STARTED. REMOVED OXYGEN PER DR MUÑIZ FOR COMFORT MEASURE IN END OF LIFE CARE.
--- NOTE | 2019-05-24 15:51 | NUR ---
CALLED DR MUÑIZ, MADE HIM AWARE PT AGONAL BREATHING AND O2 SAT TRENDING DOWN.
--- NOTE | 2019-05-24 15:55 | NUR ---
PRONOUNCED BY DR MUÑIZ.
--- NOTE | 2019-05-24 16:00 | NUR ---
QIU EMPTIED 80ML TOTAL, LIGHT MARKOS URINE.
--- NOTE | 2019-05-24 16:18 | NUR ---
CALLED BAKER APPRENTICE OFFICE, WAITING FOR CALL BACK.
--- NOTE | 2019-05-24 16:30 | NUR ---
FAMILY SERVICE ASSISTANT TALKED FOR PT DAUGHTER, PT'S AND OTHER FAMILY MEMBERS. [facility]S [facility]. CELL [phone]. FAX [phone]
--- NOTE | 2019-05-24 18:30 | NUR ---
CALLED AMBULANCE PARAMEDIC OFFICE, CASE STILL PENDING, WAITING FOR CALL BACK.
--- NOTE | 2019-05-24 19:50 | NUR ---
PHONE CALL FROM CORONERS OFFICE; SPOKE WITH RIDER TICKET WORKER KRISTOPHER POE. QUESTIONS ANSWERED. BODY RELEASED. #[phone]
--- NOTE | 2019-05-24 19:53 | NUR ---
PHONE CALL TO [facility] , SPOKE WITH YAZ.MADE AWARE THAT BODY RELEASED BY HUNTING SALES LEADER. ADRIAN IN 1-2 HOURS CALLED YON GARCIA, DAUGHTER, MARJAN, . MADE AWARE OF THE ABOVE. SHE SAID OK NOT TO CALL HER WHEN THE MORTUARY REMOVES THE BODY.
--- NOTE | 2019-05-24 21:15 | NUR ---
POST MORTEM CARE DONE.BODY IN BODY BAG.BAG TAG AND TOE TAG APPLIED. BODY TAKEN BY [facility].WITNESSES BY RN LURDES ADAMSON, NURSE MILK VENDOR.
[2019-05-25] MEDS ORDERED: LEVOTHYROXINE SODIUM 100 MCG VIAL IV SCH (09:00)
[2019-05-25 22:03] LABS: LDH,BODY FLUID 52 U/L
[2019-05-25 22:04] LABS: ALBUMIN,BODY FLUID 0.7 g/dL
== END 2019-05-24 21:15 | disposition expired | DRG 280 ==
LOC: MED 14:33 → MMU 18:09 → MTU 19:47 → MIC 05-23 09:00
PROVIDERS: ADMIT General Practice; ATTEND General Practice
PROC: 30233N1 Transfusion of Nonautologous Red Blood Cells into Peripheral Vein, Percutaneous Approach (ICD-10-PCS; principal; 2019-05-22)
PROC: 0W9G3ZZ Drainage of Peritoneal Cavity, Percutaneous Approach (ICD-10-PCS; 2019-05-22)
DX: K70.31 Alcoholic cirrhosis of liver with ascites (principal); I46.9 Cardiac arrest, cause unspecified; K76.7 Hepatorenal syndrome; J69.0 Pneumonitis due to inhalation of food and vomit; N17.0 Acute kidney failure with tubular necrosis; E43 Unspecified severe protein-calorie malnutrition; E87.1 Hypo-osmolality and hyponatremia; D62 Acute posthemorrhagic anemia; K76.6 Portal hypertension; K72.90 Hepatic failure, unspecified without coma; E80.6 Other disorders of bilirubin metabolism; D64.9 Anemia, unspecified; E03.9 Hypothyroidism, unspecified; R65.10 Systemic inflammatory response syndrome (SIRS) of non-infectious origin without acute organ dysfunction; F43.9 Reaction to severe stress, unspecified; Z68.21 Body mass index [BMI] 21.0-21.9, adult
CPT/HCPCS: 36415; 49083; 70450; 71045; 74018; 76700; 80048; 80053; 80305; 81001; 82140; 82150; 82247; 82550; 82607; 82728; 82746; 82945; 82948; 83036; 83540; 83605; 83615; 83690; 83735; 83880; 84100; 84157; 84439; 84443; 84484; 85025; 85045; 85610; 85730; 86704; 86706; 86708; 86709; 86803; 86886; 86900; 86901; 86920; 87040; 87070; 87075; 87081; 87205; 87340; 89051; 93005; 93971; 94640; 96374; 99285; C1758; C9113; J1815; J1940; J2001; J2060; J2270; J2354; J2405; J2543; J2765; J3370; J3490; J7030; J7060; J7620; P9016; P9046; Q0092